=== PATIENT | male | born 1970 | race Caucasian/White ===

== ENCOUNTER 2018-11-04 11:09 | Outpatient (CLI) | payer OTHER | END 2018-11-04 12:24 | disposition home or self-care (01) | LOC: RAD 11:09 → LAB 11:09 → RAD 12:24 | DX: I10 Essential (primary) hypertension (principal); M54.5 Low back pain; Z01.810 Encounter for preprocedural cardiovascular examination; E03.8 Other specified hypothyroidism; E78.89 Other lipoprotein metabolism disorders; E11.51 Type 2 diabetes mellitus with diabetic peripheral angiopathy without gangrene; E55.9 Vitamin D deficiency, unspecified; E11.9 Type 2 diabetes mellitus without complications; E66.8 Other obesity; M89.8X8 Other specified disorders of bone, other site; G62.89 Other specified polyneuropathies ==

== ENCOUNTER 2018-11-09 11:55 | Outpatient (CLI) | payer OTHER | END 2018-11-09 11:57 | disposition home or self-care (01) | LOC: LAB 11:55 | DX: M54.5 Low back pain (principal); I10 Essential (primary) hypertension; Z01.810 Encounter for preprocedural cardiovascular examination; E03.8 Other specified hypothyroidism; E78.89 Other lipoprotein metabolism disorders; E11.51 Type 2 diabetes mellitus with diabetic peripheral angiopathy without gangrene; E55.9 Vitamin D deficiency, unspecified; E11.9 Type 2 diabetes mellitus without complications; E66.8 Other obesity; M89.9 Disorder of bone, unspecified; G62.9 Polyneuropathy, unspecified ==